=== PATIENT | female | born 1945 | race Caucasian/White ===

== ENCOUNTER 2018-05-13 09:13 | Observation (INO) | payer OTHER, BC ==
--- NOTE | 2018-05-13 09:38 | PDOC ---
History of Present Illness - General History Source: Patient, Old Records Exam Limitations: No Limitations - History of Present Illness Initial Comments: Patient is a 73 year old female with a significant past medical history of hypertension, Endometrial CA, and high cholesterol, who presents to the ED with complaints of blurred vision that began x6 days ago. Patient reports experiencing initial right sided sinus headache that she states began x2 weeks ago while at home. She reports going to urgent care for symptoms x4 days ago on Wednesday morning, states she received blood work and ESR and CRP with the results being negative. Patient reports sending the lab work to her PCP yesterday afternoon, who then advised she come into the ED for further evaluation due to the vision changes. She reports not experiencing any pain while currently in the ED, stating the pain subsided Wednesday evening. Patient states experiencing slight dizziness and unsteady gait secondary to doubled vision. Denies chest pain, Sob. Denies nausea, vomiting. Denies fevers, chills. Denies contact with sick individuals, out of state travelling. Denies head trauma, loss of consciousness. Denies dysuria, hematuria, constipation, diarrhea. Denies any other symptoms. Allergies: Bactrim Social history: Former smoker (Last 20+ years ago). No alcohol. No illicit drugs. Surgical history: None PMD: Dr. Rolanda Skinner <Dionte Gao - Last Filed: 05/13/18 10:49> <Guerline Jaimes - Last Filed: 05/13/18 13:50> - General Chief Complaint: Difficulty with Vision Stated Complaint: DOUBLE VISION (PCP SENT) Time Seen by Provider: 05/13/18 09:37 Past History <Dionte Gao - Last Filed: 05/13/18 10:49> - Past Medical History Cancer: Yes (ENDOMETRIAL) Cardiac Disorders: Yes (ANGINA) COPD: No Diabetes: Yes (NIDD) HTN: Yes Hypercholesterolemia: Yes - Immunization History Immunization Up to Date: Yes - Suicide/Smoking/Psychosocial Hx Smoking Status: Yes Smoking History: Former smoker Have you smoked in the past 12 months: No Number of Cigarettes Smoked Daily: 0 If you are a former smoker, when did you quit?: 20+ years ago Information on smoking cessation initiated: No Hx Alcohol Use: No Drug/Substance Use Hx: No <Guerline Jaimes - Last Filed: 05/13/18 13:50> - Past Medical History Allergies/Adverse Reactions: Allergies Allergy/AdvReac Type Severity Reaction Status Date / Time sulfamethoxazole Allergy HIVES/WHEEZ Verified 09/02/12 09:58 [From Bactrim] ING trimethoprim [From Bactrim] Allergy HIVES/WHEEZ Verified 09/02/12 09:58 ING Home Medications: Ambulatory Orders Aspirin/Acetaminophen/Caffeine [Excedrin Extra Strength Caplet] 1 each PO PRN Fesoterodine Fumarate [Toviaz] 8 mg PO BID 05/13/18 Glucosamine/MSM/Chondroitin A [Glucosamine Chondroit MSM Tab] 1 each PO DAILY Hydrochlorothiazide [Hctz -] 12.5 mg PO DAILY 05/13/18 Metformin HCl [Metformin HCl ER] 1,000 mg PO BID 05/13/18 Pantoprazole Sodium 40 mg PO DAILY 05/13/18 Pantoprazole Sodium 40 mg PO DAILY 05/13/18 Rosuvastatin [Crestor -] 5 mg PO QID 05/13/18 Verapamil HCl [Verapamil ER Pm] 300 mg PO DAILY 05/13/18 Review of Systems - Review of Systems Able to Perform ROS?: Yes Comments:: GENERAL/CONSTITUTIONAL: No fever or chills. No weakness. HEAD, EYES, EARS, NOSE AND THROAT: +Head pain. +doubled vision. No ear pain or discharge. No sore throat. CARDIOVASCULAR: No chest pain or shortness of breath. RESPIRATORY: No cough, wheezing, or hemoptysis. GASTROINTESTINAL: No nausea, vomiting, diarrhea or constipation. GENITOURINARY: No dysuria, frequency, or change in urination. MUSCULOSKELETAL: No joint or muscle swelling or pain. No neck or back pain. SKIN: No rash NEUROLOGIC: No headache, vertigo, loss of consciousness, or change in strength/ sensation. ENDOCRINE: No increased thirst. No abnormal weight change. HEMATOLOGIC/LYMPHATIC: No anemia, easy bleeding, or history of blood clots. ALLERGIC/IMMUNOLOGIC: No hives or skin allergy. All Other Systems: Reviewed and Negative <Dionte Gao - Last Filed: 05/13/18 10:49> *Physical Exam - Vital Signs Last Vital Signs Temp Pulse Resp BP Pulse Ox 98.7 F 95 H 16 136/80 96 05/13/18 09:14 05/13/18 09:14 05/13/18 09:14 05/13/18 09:14 05/13/18 09:59 - Physical Exam Comments: GENERAL: Awake, alert, and fully oriented, in no acute distress HEAD: No signs of trauma EYES: +Ocular reflexes intact, slight sluggish in the right eye. PERRLA, EOMI, sclera anicteric, conjunctiva clear ENT: Auricles normal inspection, hearing grossly normal, nares patent, oropharynx clear without exudates. Moist mucosa NECK: Normal ROM, supple, no lymphadenopathy, JVD, or masses LUNGS: Breath sounds equal, clear to auscultation bilaterally. No wheezes, and no crackles HEART: Regular rate and rhythm, normal S1 and S2, no murmurs, rubs or gallops ABDOMEN: Soft, nontender, normoactive bowel sounds. No guarding, no rebound. No masses EXTREMITIES: Normal range of motion, no edema. No clubbing or cyanosis. No cords, erythema, or tenderness NEUROLOGICAL: Cranial nerves II through XII grossly intact. Normal speech, normal gait SKIN: Warm, Dry, normal turgor, no rashes or lesions noted. <Dionte Gao - Last Filed: 05/13/18 10:49> - Vital Signs Last Vital Signs Temp Pulse Resp BP Pulse Ox 98.7 F 95 H 16 136/80 96 05/13/18 09:14 05/13/18 09:14 05/13/18 09:14 05/13/18 09:14 05/13/18 09:14 <Guerline Jaimes - Last Filed: 05/13/18 13:50> ED Treatment Course - LABORATORY CBC & Chemistry Diagram: 05/13/18 10:55 05/13/18 10:55 <Guerline Jaimes - Last Filed: 05/13/18 13:50> Medical Decision Making - Medical Decision Making 05/13/18 10:56 Pt presents to the ED complaining of a 6 day history of binoncular diplopia. Denies other symptoms except for mild lightheadness. Neurologically intact on exam except for somewhat sluggish extraoccular movements in the R eye. Concern for space occupying intracranial lesion. Will check CT head, likely admit for MRI if CT head is negative. <Guerline Jaimes - Last Filed: 05/13/18 13:50> *DC/Admit/Observation/Transfer - Attestations Scribe Attestion: 05/13/18 10:50 Documentation prepared by Dionte Gao, acting as biomedical engineer for Guerline Jaimes MD. <Dionte Gao - Last Filed: 05/13/18 10:49> - Discharge Dispostion Decision to Admit order: Yes <Guerline Jaimes - Last Filed: 05/13/18 13:50> Diagnosis at time of Disposition: Diplopia - Discharge Dispostion Condition at time of disposition: Good - Referrals Referrals: Espinoza Skinner MD [Primary Care Provider] - - Patient Instructions - Post Discharge Activity
[2018-05-13 11:03] LABS: BASO % 0.8 % (0-2.0); EOS % 1.1 % (0-4.5); HEMOGLOBIN 13.7 GM/dL (10.7-15.3); LYMPH % 28.5 % (8-40); MCH 31.3 pg (25.7-33.7); MCHC 34.3 g/dl (32.0-36.0); MEAN CELL VOLUME 91.1 fl (80-96); MEAN PLT VOLUME 7.6 fl (7.5-11.1); MONO % 3.6 % (3.8-10.2); PLATELET COUNT 337 K/MM3 (134-434); RBC 4.39 M/mm3 (3.60-5.2); RDW 13.6 % (11.6-15.6); WHITE BLOOD COUNT 8.3 K/mm3 (4.0-10.0)
[2018-05-13 11:24] LABS: ANION GAP 9 (8-16); BLOOD UREA NITROGEN 17 mg/dL (7-18); CALCIUM 9.7 mg/dL (8.5-10.1); CHLORIDE 102 mmol/L (98-107); CO2 30 mmol/L (21-32); GLUCOSE,RANDOM 147 mg/dL (74-106); POTASSIUM 4.7 mmol/L (3.5-5.1); SODIUM 141 mmol/L (136-145)
[2018-05-13 11:28] LABS: ALK PHOS 101 U/L (45-117); BILIRUBIN,TOTAL 0.3 mg/dL (0.2-1.0); CREATININE 0.7 mg/dL (0.55-1.02); SGOT/AST 13 U/L (15-37); SGPT/ALT 26 U/L (12-78); TOT PROT 7.6 g/dl (6.4-8.2)
[2018-05-13 12:15] LABS: ERYTHROCYTE SEDIMENTATION RATE 17 mm/hr (0-30)
--- NOTE | 2018-05-13 13:48 | HP ---
CHIEF COMPLAINT: Double vision PCP: Dr. Espinoza Skinner [facility] Lech[facility] [phone] ; FAX: [phone] HISTORY OF PRESENT ILLNESS: Patient is a 73 year old female with a PMH significant for HTN, HLD, NIDDM, and endometrial cancer. She presents to the ED with complaints of headache and blurred vision. About two weeks ago patient developed a headache just above the right eye. She felt sinus pressure and soreness when she pressed on her eyebrow. The headache lasted for about a week and went away. There was no nasal discharge or upper respiratory symptoms. The headache has not recurred. About 4 days ago she developed "double vision." She describes the vision change as items up close appear to be vibrating. She has had some unsteadiness walking due to the vision difficulty. Patient has been travelling back and forth to [facility] since the spring and spends several weeks at a time there. Family members in the area have contracted Lyme disease recently. Patient has not noticed any rashes or tick bites and she is diligent about checking her skin. Patient has no other complaints. She has no pain. Denies fever, sweats, chills. 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 years Alcohol: no Drugs: no Family History: Allergies sulfamethoxazole [From Bactrim] Allergy (Verified 09/02/12 09:58) HIVES/WHEEZING trimethoprim [From Bactrim] Allergy (Verified 09/02/12 09:58) HIVES/WHEEZING HOME MEDICATIONS: Home Medications Medication Instructions Recorded Aspirin/Acetaminophen/Caffeine 1 each PO PRN 05/13/18 [Excedrin Extra Strength Caplet] Fesoterodine Fumarate [Toviaz] 8 mg PO BID 05/13/18 Glucosamine/MSM/Chondroitin A 1 each PO DAILY 05/13/18 [Glucosamine Chondroit MSM Tab] Hydrochlorothiazide [Hctz -] 12.5 mg PO DAILY 05/13/18 Metformin HCl [Metformin HCl ER] 1,000 mg PO BID 05/13/18 Pantoprazole Sodium 40 mg PO DAILY 05/13/18 Pantoprazole Sodium 40 mg PO DAILY 05/13/18 Rosuvastatin [Crestor -] 5 mg PO QID 05/13/18 Verapamil HCl [Verapamil ER Pm] 300 mg PO DAILY 05/13/18 REVIEW OF SYSTEMS CONSTITUTIONAL: Absent: fever, chills, diaphoresis, generalized weakness, malaise, loss of appetite, weight change HEENT: Absent: rhinorrhea, nasal congestion, throat pain, throat swelling, difficulty swallowing, mouth swelling, ear pain, eye pain, visual changes CARDIOVASCULAR: Absent: chest pain, syncope, palpitations, irregular heart rate, lightheadedness , peripheral edema RESPIRATORY: Absent: cough, shortness of breath, dyspnea with exertion, orthopnea, wheezing, stridor, hemoptysis GASTROINTESTINAL: Absent: abdominal pain, abdominal distension, nausea, vomiting, diarrhea, constipation, melena, hematochezia GENITOURINARY: Absent: dysuria, frequency, urgency, hesitancy, hematuria, flank pain, genital pain MUSCULOSKELETAL: Absent: myalgia, arthralgia, joint swelling, back pain, neck pain SKIN: Absent: rash, itching, pallor HEMATOLOGIC/IMMUNOLOGIC: Absent: easy bleeding, easy bruising, lymphadenopathy, frequent infections ENDOCRINE: Absent: unexplained weight gain, unexplained weight loss, heat intolerance, cold intolerance NEUROLOGIC: +double vision, headache Absent: headache, focal weakness or paresthesias, dizziness, unsteady gait, seizure, mental status changes, bladder or bowel incontinence PSYCHIATRIC: Absent: anxiety, depression, suicidal or homicidal ideation, hallucinations. PHYSICAL EXAMINATION Vital Signs - 24 hr 05/13/18 05/13/18 05/13/18 09:14 09:59 13:06 Temperature 98.7 F 99.0 F Pulse Rate 95 H Pulse Rate [ 97 H Left Radial] Respiratory 16 16 Rate Blood Pressure 136/80 Blood Pressure 135/82 [Right Arm] O2 Sat by Pulse 96 96 96 Oximetry (%) GENERAL: Awake, alert, and fully oriented, in no acute distress. HEAD: Normal with no signs of trauma. EYES: PERRL but not to accommodation. Right eye did not deviate. Left eye deviated medially and downward. EARS, NOSE, THROAT: Ears normal, nares patent, oropharynx clear without exudates. Moist mucous membranes. NECK: Normal range of motion, supple without lymphadenopathy, JVD, or masses. LUNGS: Breath sounds equal, clear to auscultation bilaterally. No wheezes, and no crackles. No accessory muscle use. HEART: Regular rate and rhythm, normal S1 and S2 without murmur, rub or gallop. ABDOMEN: Soft, nontender, not distended, normoactive bowel sounds, no guarding, no rebound, no masses. No hepatomegaly or splenomegaly. MUSCULOSKELETAL: Normal range of motion at all joints. No bony deformities or tenderness. No CVA tenderness. UPPER EXTREMITIES: 2+ pulses, warm, well-perfused. No cyanosis. No clubbing. No peripheral edema. LOWER EXTREMITIES: 2+ pulses, warm, well-perfused. No calf tenderness. No peripheral edema. NEUROLOGICAL: Cranial nerves II-XII intact. Normal speech. Normal gait. PSYCHIATRIC: Cooperative. Good eye contact. Appropriate mood and affect. SKIN: Warm, dry, normal turgor, no rashes or lesions noted, normal capillary refill. Laboratory Results - last 24 hr 05/13/18 05/13/18 10:55 10:55 WBC 8.3 RBC 4.39 Hgb 13.7 Hct 40.0 MCV 91.1 MCH 31.3 MCHC 34.3 RDW 13.6 Plt Count 337 MPV 7.6 Absolute Neuts (auto) 5.5 Neutrophils % 66.0 Lymphocytes % 28.5 Monocytes % 3.6 L Eosinophils % 1.1 Basophils % 0.8 Nucleated RBC % 0 ESR 17 Sodium 141 Potassium 4.7 Chloride 102 Carbon Dioxide 30 Anion Gap 9 BUN 17 Creatinine 0.7 Creat Clearance w eGFR > 60 Random Glucose 147 H Calcium 9.7 Total Bilirubin 0.3 AST 13 L ALT 26 Alkaline Phosphatase 101 C-Reactive Protein 0.9 H Total Protein 7.6 Albumin 4.0 ASSESSMENT/PLAN: Patient is a 73 year old female with a PMH significant for HTN, HLD, NIDDM, and endometrial cancer. Placed on observation for diplopia. Diplopia --on exam left eye deviates on accommodation --CT head negative for acute process --MRI brain w/o contrast ordered --peripheral smear, Lymes w/ Western Blot, ehrlichiosis, babesisos --ID consult requested --neuro consult requested Hypertension --BP stable --continue quinapril, HCTZ Hyperlipidemia --continue statin NIDDM --Novolog sliding scale coverage Endometrial cancer, remote --s/p REJI-SBO --stable FEN Fluids: PO intake adequate Electrolytes: replete as indicated Nutrition: low sodium DVT prophylaxis; subq heparin tomorrow if still here Dispo: continues to require observation. Full code. Visit type - Emergency Visit Emergency Visit: Yes ED Registration Date: 05/13/18 Care time: The patient presented to the Emergency Department on the above date and was hospitalized for further evaluation of their emergent condition. - New Patient This patient is new to me today: Yes Date on this admission: 05/14/18 - Critical Care Critical Care patient: No Hospitalist Screening - Colonoscopy Questionnaire Colonoscopy Questionnaire: Colonoscopy Questionnaire - Patient: 50 - 75 years old and never had a screening colonoscopy: Unknown History of colon or rectal polyps, or CA: No History of IBD, Crohn's disease or UC: No History of abdominal radiation therapy as a child: No - Relative: 1 with colon or rectal CA, or polyps at age 60 or younger: Unknown Colon or rectal CA diagnosed at age 45 or younger: Unknown Multiple relatives with colon or rectal CA: Unknown - Outcome: Screening Result: Negative Screen
[2018-05-13 16:07] VITALS: BMI 33.0
[2018-05-13] MEDS ORDERED: diazePAM 5 MG TABLET PO ONE (19:45)
[2018-05-13] MEDS: ROSUVASTATIN CA 5 MG TABLET (FP) PO SCH (21:51)
[2018-05-13] MEDS: VERAPAMIL HCL PO SCH (21:51)
[2018-05-13] MEDS: HEPARIN NA (PORCINE) 5,000 UNITS/ML 1ML VIAL SQ SCH (21:54)
[2018-05-13 22:04] LABS: BASO % 0.7 % (0-2.0); EOS % 1.1 % (0-4.5); HEMATOCRIT 39.1 % (32.4-45.2); HEMOGLOBIN 13.2 GM/dL (10.7-15.3); MCHC 33.8 g/dl (32.0-36.0); MEAN CELL VOLUME 91.5 fl (80-96); MEAN PLT VOLUME 8.1 fl (7.5-11.1); MONO % 3.4 % (3.8-10.2); NEUT % 62.8 % (42.8-82.8); PLATELET COUNT 329 K/MM3 (134-434); RBC 4.27 M/mm3 (3.60-5.2); RDW 13.5 % (11.6-15.6); WHITE BLOOD COUNT 9.6 K/mm3 (4.0-10.0)
[2018-05-14] MEDS: HEPARIN NA (PORCINE) 5,000 UNITS/ML 1ML VIAL SQ SCH ×3 (06:19→21:54)
[2018-05-14] MEDS ORDERED: VERAPAMIL HCL PO SCH (10:00)
[2018-05-14] MEDS ORDERED: HYDROCHLOROTHIAZIDE 12.5 MG CAPSULE (FP) PO SCH ×2 (10:00→17:30)
[2018-05-14] MEDS ORDERED: VERAPAMIL HCL 300 MG PO SCH (10:00)
[2018-05-14] MEDS ORDERED: ROSUVASTATIN CA 5 MG TABLET (FP) PO SCH (10:00)
--- NOTE | 2018-05-14 10:10 | PN ---
Physical Exam: SUBJECTIVE: Patient seen and examined at bedside. Back from MRI, tolerated well. OBJECTIVE: Vital Signs Period Temp Pulse Resp BP Sys/Cedñeo Pulse Ox Last 24 Hr 97.3 F-99.0 F 71-109 16-20 124-147/64-90 96-97 GENERAL: Awake, alert, and fully oriented, in no acute distress. EYES: PERRL but not to accommodation. Right eye did not deviate. Left eye deviated medially and downward. LUNGS: Breath sounds equal, clear to auscultation bilaterally. No wheezes, and no crackles. No accessory muscle use. HEART: Regular rate and rhythm, normal S1 and S2 ABDOMEN: Soft, nontender, not distended MUSCULOSKELETAL: Normal range of motion at all joints. No bony deformities or tenderness. No CVA tenderness. UPPER EXTREMITIES: 2+ pulses, warm, well-perfused. No cyanosis. No clubbing. No peripheral edema. LOWER EXTREMITIES: 2+ pulses, warm, well-perfused. No calf tenderness. No peripheral edema. Laboratory Results - last 24 hr 05/13/18 05/13/18 05/13/18 10:55 10:55 21:15 WBC 8.3 9.6 RBC 4.39 4.27 Hgb 13.7 13.2 Hct 40.0 39.1 MCV 91.1 91.5 MCH 31.3 31.0 MCHC 34.3 33.8 RDW 13.6 13.5 Plt Count 337 329 MPV 7.6 8.1 Absolute Neuts (auto) 5.5 6.0 Neutrophils % 66.0 62.8 Lymphocytes % 28.5 32.0 Monocytes % 3.6 L 3.4 L Eosinophils % 1.1 1.1 Basophils % 0.8 0.7 Nucleated RBC % 0 0 ESR 17 Sodium 141 Potassium 4.7 Chloride 102 Carbon Dioxide 30 Anion Gap 9 BUN 17 Creatinine 0.7 Creat Clearance w eGFR > 60 POC Glucometer Random Glucose 147 H Calcium 9.7 Total Bilirubin 0.3 AST 13 L ALT 26 Alkaline Phosphatase 101 C-Reactive Protein 0.9 H Total Protein 7.6 Albumin 4.0 05/13/18 05/14/18 23:40 06:03 WBC RBC Hgb Hct MCV MCH MCHC RDW Plt Count MPV Absolute Neuts (auto) Neutrophils % Lymphocytes % Monocytes % Eosinophils % Basophils % Nucleated RBC % ESR Sodium Potassium Chloride Carbon Dioxide Anion Gap BUN Creatinine Creat Clearance w eGFR POC Glucometer 148 135 Random Glucose Calcium Total Bilirubin AST ALT Alkaline Phosphatase C-Reactive Protein Total Protein Albumin Active Medications Generic Name Dose Route Start Last Admin Trade Name Evelia PRN Reason Stop Dose Admin Heparin Sodium (Porcine) 5,000 unit 05/13/18 22:00 05/14/18 06:19 Heparin - SQ 5,000 unit TID MEDINA Administration Hydrochlorothiazide 12.5 mg 05/14/18 10:00 Hctz - PO DAILY MEDINA Rosuvastatin Calcium 5 mg 05/13/18 22:00 05/13/18 21:51 Crestor - PO 5 mg HS MEDINA Administration Verapamil HCl 120 mg/ 300 mg 05/13/18 22:00 05/13/18 21:51 Verapamil HCl 180 mg PO 300 mg HS MEDINA Administration ASSESSMENT/PLAN: Patient is a 73 year old female with a PMH significant for HTN, HLD, NIDDM, and endometrial cancer. Placed on observation for diplopia. Diplopia --on exam left eye deviates on accommodation --CT head negative for acute process --MRI brain done pending dictation --peripheral smear, Lymes w/ Western Blot, ehrlichiosis, babesisos pending --ID and neuro following Hypertension --BP stable --continue quinapril, HCTZ Hyperlipidemia --continue statin NIDDM --Novolog sliding scale coverage Endometrial cancer, remote --s/p REJI-SBO --stable FEN Fluids: PO intake adequate Electrolytes: replete as indicated Nutrition: low sodium DVT prophylaxis; subq heparin; oob, ambulation Dispo: continues to require observation. Full code. Visit type - Emergency Visit Emergency Visit: Yes ED Registration Date: 05/13/18 Care time: The patient presented to the Emergency Department on the above date and was hospitalized for further evaluation of their emergent condition. - New Patient This patient is new to me today: No - Critical Care Critical Care patient: No
[2018-05-14] MEDS ORDERED: diazePAM 5 MG TABLET PO ONE (11:45)
--- NOTE | 2018-05-14 11:54 | CONSULT ---
Consult - text type - Consultation Consultation Note: Neurology CHIEF COMPLAINT: Double vision HISTORY OF PRESENT ILLNESS: 73 year old female with a PMH significant for HTN, HLD, NIDDM, and endometrial cancer. She presented to the ED with complaints of blurred vision that began x 6 days ago. Patient reported experiencing initial right-sided sinus headache that she states began x2 weeks ago while at home. She reported going to urgent care for symptoms x 4 days ago on Wednesday morning, stateed she received blood work and ESR and CRP with the results being negative, not consistent with giant cell arteritis. Patient reports sending the lab work to her PCP, who then advised she come into the ED for further evaluation due to the vision changes. She reported not experiencing any pain. Denies chest pain, Sob. Denies nausea, vomiting. Denies fevers, chills. Denies contact with sick individuals, out of state travelling. Denies head trauma, loss of consciousness. Denies dysuria, hematuria, constipation, diarrhea. Denies any other symptoms. CT head completed without acute changes. MRI ordered but patient with nerve stimulator. Discussed with nurse and radiology would have to contact [employer] to assure it has been turned off for safe completion of MRI. Defer to radiology staff on this. Patient states she was able to call [employer] rep and have it turned off but this is not something I can verify. Recent Travel: No PAST MEDICAL HISTORY: Hypertension Hyperlipidemia NIDDM Endometrial cancer PAST SURGICAL HISTORY: None reported Social History: retired nurse Smoking: quit x 20 years Alcohol: no Drugs: no Family History: Allergies sulfamethoxazole [From Bactrim] Allergy (Verified 09/02/12 09:58) HIVES/WHEEZING trimethoprim [From Bactrim] Allergy (Verified 09/02/12 09:58) HIVES/WHEEZING HOME MEDICATIONS: Home Medications Medication Instructions Recorded Aspirin/Acetaminophen/Caffeine 1 each PO PRN 05/13/18 [Excedrin Extra Strength Caplet] Fesoterodine Fumarate [Toviaz] 8 mg PO BID 05/13/18 Glucosamine/MSM/Chondroitin A 1 each PO DAILY 05/13/18 [Glucosamine Chondroit MSM Tab] Hydrochlorothiazide [Hctz -] 12.5 mg PO DAILY 05/13/18 Metformin HCl [Metformin HCl ER] 1,000 mg PO BID 05/13/18 Pantoprazole Sodium 40 mg PO DAILY 05/13/18 Pantoprazole Sodium 40 mg PO DAILY 05/13/18 Rosuvastatin [Crestor -] 5 mg PO QID 05/13/18 Verapamil HCl [Verapamil ER Pm] 300 mg PO DAILY 05/13/18 REVIEW OF SYSTEMS CONSTITUTIONAL: Absent: fever, chills, diaphoresis, generalized weakness, malaise, loss of appetite, weight change HEENT: Absent: rhinorrhea, nasal congestion, throat pain, throat swelling, difficulty swallowing, mouth swelling, ear pain, eye pain, visual changes CARDIOVASCULAR: Absent: chest pain, syncope, palpitations, irregular heart rate, lightheadedness , peripheral edema RESPIRATORY: Absent: cough, shortness of breath, dyspnea with exertion, orthopnea, wheezing, stridor, hemoptysis GASTROINTESTINAL: Absent: abdominal pain, abdominal distension, nausea, vomiting, diarrhea, constipation, melena, hematochezia GENITOURINARY: Absent: dysuria, frequency, urgency, hesitancy, hematuria, flank pain, genital pain MUSCULOSKELETAL: Absent: myalgia, arthralgia, joint swelling, back pain, neck pain SKIN: Absent: rash, itching, pallor HEMATOLOGIC/IMMUNOLOGIC: Absent: easy bleeding, easy bruising, lymphadenopathy, frequent infections ENDOCRINE: Absent: unexplained weight gain, unexplained weight loss, heat intolerance, cold intolerance NEUROLOGIC: +double vision, headache Absent: headache, focal weakness or paresthesias, dizziness, unsteady gait, seizure, mental status changes, bladder or bowel incontinence PSYCHIATRIC: Absent: anxiety, depression, suicidal or homicidal ideation, hallucinations. PHYSICAL EXAMINATION Vital Signs Period Temp Pulse Resp BP Sys/Cedeño Pulse Ox Last 24 Hr 97.3 F-99.0 F 71-109 16-20 124-147/64-90 96-97 GENERAL: Awake, alert, and fully oriented, in no acute distress. HEAD: Normal with no signs of trauma. EYES: PERRL but not to accommodation. Right eye did not deviate. Left eye deviated medially and downward. EARS, NOSE, THROAT: Ears normal, nares patent, oropharynx clear without exudates. Moist mucous membranes. NECK: Normal range of motion, supple without lymphadenopathy, JVD, or masses. LUNGS: Breath sounds equal, clear to auscultation bilaterally. No wheezes, and no crackles. No accessory muscle use. HEART: Regular rate and rhythm, normal S1 and S2 without murmur, rub or gallop. ABDOMEN: Soft, nontender, not distended, normoactive bowel sounds, no guarding, no rebound, no masses. No hepatomegaly or splenomegaly. MUSCULOSKELETAL: Normal range of motion at all joints. No bony deformities or tenderness. No CVA tenderness. UPPER EXTREMITIES: 2+ pulses, warm, well-perfused. No cyanosis. No clubbing. No peripheral edema. LOWER EXTREMITIES: 2+ pulses, warm, well-perfused. No calf tenderness. No peripheral edema. NEUROLOGICAL: Cranial nerves intact, no facial droop, no slurred speech, strength grossly intact, sensory normal PSYCHIATRIC: Cooperative. Good eye contact. Appropriate mood and affect. SKIN: Warm, dry, normal turgor, no rashes or lesions noted, normal capillary refill. Laboratory Results - last 24 hr 05/13/18 05/13/18 10:55 10:55 WBC 8.3 RBC 4.39 Hgb 13.7 Hct 40.0 MCV 91.1 MCH 31.3 MCHC 34.3 RDW 13.6 Plt Count 337 MPV 7.6 Absolute Neuts (auto) 5.5 Neutrophils % 66.0 Lymphocytes % 28.5 Monocytes % 3.6 L Eosinophils % 1.1 Basophils % 0.8 Nucleated RBC % 0 ESR 17 Sodium 141 Potassium 4.7 Chloride 102 Carbon Dioxide 30 Anion Gap 9 BUN 17 Creatinine 0.7 Creat Clearance w eGFR > 60 Random Glucose 147 H Calcium 9.7 Total Bilirubin 0.3 AST 13 L ALT 26 Alkaline Phosphatase 101 C-Reactive Protein 0.9 H Total Protein 7.[address] head reviewed ASSESSMENT/PLAN: 73 year old female with a PMH significant for HTN, HLD, NIDDM, and endometrial cancer. She presented to the ED with complaints of blurred vision that began x 6 days ago. Patient reported experiencing initial right-sided sinus headache that she states began x2 weeks ago while at home. She reported going to urgent care for symptoms x 4 days ago on Wednesday morning, stateed she received blood work and ESR and CRP with the results being negative, not consistent with giant cell arteritis. Patient reports sending the lab work to her PCP, who then advised she come into the ED for further evaluation due to the vision changes. She reported not experiencing any pain. Denies chest pain, Sob. Denies nausea, vomiting. Denies fevers, chills. Denies contact with sick individuals, out of state travelling. Denies head trauma, loss of consciousness. Denies dysuria, hematuria, constipation, diarrhea. Denies any other symptoms. CT head completed without acute changes. MRI ordered but patient with nerve stimulator. Discussed with nurse and radiology would have to contact [employer] to assure it has been turned off for safe completion of MRI. Defer to radiology staff on this. Patient states she was able to call [employer] rep and have it turned off but this is not something I can verify. If MRI brain not feasible, can try repeat CT head. Consider optho consult. Monitor blood pressure, maintain normotensive range. Monitor lipid, continue statin.
[2018-05-14] MEDS ORDERED: PATIENT'S OWN MEDICATION (NON-FORMULARY) (Quinapril/Hydrochlorothiazide [Accuretic 20-12.5 PO SCH (17:30)
[2018-05-14] MEDS ORDERED: QUINAPRIL HCL 20 MG TABLET (FP) PO SCH ×2 (17:30)
[2018-05-14] MEDS ORDERED: QUINAPRIL HCL 20 MG TABLET (FP) PO ONE (18:00)
[2018-05-14] MEDS: VERAPAMIL HCL PO SCH (21:54)
[2018-05-14] MEDS: ROSUVASTATIN CA 5 MG TABLET (FP) PO SCH (21:55)
[2018-05-14] MEDS: INSULIN SLIDING SCALE (NOVOLOG) 1 VIAL SQ SCH (21:55)
[2018-05-14] MEDS ORDERED: AMITRIPTYLINE HCL 10 MG TABLET (FP) PO SCH (22:00)
[2018-05-15] MEDS: INSULIN SLIDING SCALE (NOVOLOG) 1 VIAL SQ SCH ×3 (06:50→17:13)
[2018-05-15] MEDS: HEPARIN NA (PORCINE) 5,000 UNITS/ML 1ML VIAL SQ SCH ×2 (06:50→13:53)
[2018-05-15] MEDS ORDERED: PT OWN MED DRAWER 7, Y5N ONE (09:26)
[2018-05-15] MEDS ORDERED: QUINAPRIL HCL 20 MG TABLET (FP) PO SCH (10:00)
[2018-05-15] MEDS ORDERED: PANTOPRAZOLE 40 MG TABLET (FP) PO SCH (10:00)
[2018-05-15] MEDS ORDERED: HYDROCHLOROTHIAZIDE 12.5 MG CAPSULE (FP) PO SCH (10:00)
--- NOTE | 2018-05-15 12:42 | PN ---
Progress Note (short form) - Note Progress Note: Neurology CHIEF COMPLAINT: Double vision HISTORY OF PRESENT ILLNESS: 73 year old female with a PMH significant for HTN, HLD, NIDDM, and endometrial cancer. She presented to the ED with complaints of blurred vision that began x 6 days ago. Patient reported experiencing initial right-sided sinus headache that she states began x2 weeks ago while at home. She reported going to urgent care for symptoms x 4 days ago on Wednesday morning, stateed she received blood work and ESR and CRP with the results being negative, not consistent with giant cell arteritis. Patient reports sending the lab work to her PCP, who then advised she come into the ED for further evaluation due to the vision changes. She reported not experiencing any pain. MRI completed. mri completed and reviewed, no infarct nited Suggested Optho eval, if not completed inpatient can be outpatient Active Medications Amitriptyline HCl (Elavil -) 10 mg PO HS [facility] Last Admin: 05/14/18 21:54 Dose: 10 mg Heparin Sodium (Porcine) (Heparin -) 5,000 unit SQ TID [facility] Last Admin: 05/15/18 06:50 Dose: 5,000 unit Hydrochlorothiazide (Hctz -) 12.5 mg PO DAILY [facility] Last Admin: 05/15/18 09:40 Dose: 12.5 mg Insulin Aspart (Novolog Vial Sliding Scale -) 1 vial SQ ACHS [facility]; Protocol Last Admin: 05/15/18 12:08 Dose: Not Given Pantoprazole Sodium (Protonix -) 40 mg PO DAILY [facility] Last Admin: 05/15/18 09:41 Dose: 40 mg Quinapril HCl (Accupril -) 20 mg PO DAILY [facility] Last Admin: 05/15/18 09:40 Dose: 20 mg Rosuvastatin Calcium (Crestor -) 5 mg PO HS [facility] Last Admin: 05/14/18 21:55 Dose: 5 mg Verapamil HCl 120 mg/ (Verapamil HCl 180 mg) 300 mg PO HS [facility] Last Admin: 05/14/18 21:54 Dose: 300 mg PHYSICAL EXAMINATION Vital Signs Temperature 98.8 F 05/15/18 06:43 Pulse Rate 80 05/15/18 09:30 Respiratory Rate 18 05/15/18 09:30 Blood Pressure 130/76 05/15/18 09:30 O2 Sat by Pulse Oximetry (%) 97 05/15/18 09:00 GENERAL: Awake, alert, and fully oriented, in no acute distress. HEAD: Normal with no signs of trauma. EYES: PERRL but not to accommodation. Right eye did not deviate. Left eye deviated medially and downward. EARS, NOSE, THROAT: Ears normal, nares patent, oropharynx clear without exudates. Moist mucous membranes. NECK: Normal range of motion, supple without lymphadenopathy, JVD, or masses. LUNGS: Breath sounds equal, clear to auscultation bilaterally. No wheezes, and no crackles. No accessory muscle use. HEART: Regular rate and rhythm, normal S1 and S2 without murmur, rub or gallop. ABDOMEN: Soft, nontender, not distended, normoactive bowel sounds, no guarding, no rebound, no masses. No hepatomegaly or splenomegaly. MUSCULOSKELETAL: Normal range of motion at all joints. No bony deformities or tenderness. No CVA tenderness. UPPER EXTREMITIES: 2+ pulses, warm, well-perfused. No cyanosis. No clubbing. No peripheral edema. LOWER EXTREMITIES: 2+ pulses, warm, well-perfused. No calf tenderness. No peripheral edema. NEUROLOGICAL: Cranial nerves intact, no facial droop, no slurred speech, strength grossly intact, sensory normal PSYCHIATRIC: Cooperative. Good eye contact. Appropriate mood and affect. SKIN: Warm, dry, normal turgor, no rashes or lesions noted, normal capillary refill. CBCD WBC 9.6 K/mm3 (4.0-10.0) 05/13/18 21:15 RBC 4.27 M/mm3 (3.60-5.2) 05/13/18 21:15 Hgb 13.2 GM/dL (10.7-15.3) 05/13/18 21:15 Hct 39.1 % (32.4-45.2) 05/13/18 21:15 MCV 91.5 fl (80-96) 05/13/18 21:15 MCHC 33.8 g/dl (32.0-36.0) 05/13/18 21:15 RDW 13.5 % (11.6-15.6) 05/13/18 21:15 Plt Count 329 K/MM3 (134-434) 05/13/18 21:15 MPV 8.1 fl (7.5-11.1) 05/13/18 21:15 CMP Sodium 141 mmol/L (136-145) 05/13/18 10:55 Potassium 4.7 mmol/L (3.5-5.1) 05/13/18 10:55 Chloride 102 mmol/L (98-107) 05/13/18 10:55 Carbon Dioxide 30 mmol/L (21-32) 05/13/18 10:55 Anion Gap 9 (8-16) 05/13/18 10:55 BUN 17 mg/dL (7-18) 05/13/18 10:55 Creatinine 0.7 mg/dL (0.55-1.02) 05/13/18 10:55 Creat Clearance w eGFR > 60 (>60) 05/13/18 10:55 Calcium 9.7 mg/dL (8.5-10.1) 05/13/18 10:55 Total Bilirubin 0.3 mg/dL (0.2-1.0) 05/13/18 10:55 AST 13 U/L (15-37) L 05/13/18 10:55 ALT 26 U/L (12-78) 05/13/18 10:55 Alkaline Phosphatase 101 U/L (45-117) 05/13/18 10:55 Total Protein 7.6 g/dl (6.4-8.2) 05/13/18 10:55 Albumin 4.0 g/dl (3.4-5.0) 05/13/18 10:55 CT head reviewed ASSESSMENT/PLAN: 73 year old female with a PMH significant for HTN, HLD, NIDDM, and endometrial cancer. She presented to the ED with complaints of blurred vision that began x 6 days ago. Patient reported experiencing initial right-sided sinus headache that she states began x2 weeks ago while at home. She reported going to urgent care for symptoms x 4 days ago on Wednesday morning, stateed she received blood work and ESR and CRP with the results being negative, not consistent with giant cell arteritis. Patient reports sending the lab work to her PCP, who then advised she come into the ED for further evaluation due to the vision changes. She reported not experiencing any pain. Denies chest pain, Sob. Denies nausea, vomiting. Denies fevers, chills. Denies contact with sick individuals, out of state travelling. Denies head trauma, loss of consciousness. Denies dysuria, hematuria, constipation, diarrhea. Denies any other symptoms. CT head completed without acute changes. MRI reviewed and no acute changes noted. Consider optho consult, if not inpatient can be done as outpatient. Monitor blood pressure, maintain normotensive range. Monitor lipid, continue statin.
--- NOTE | 2018-05-15 14:39 | PN ---
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
[2018-05-15 15:54] VITALS: BP 123/73; PULSE 86; TEMP 98.5
--- NOTE | 2018-05-15 18:11 | DS ---
Physical Exam: SUBJECTIVE: Patient seen and examined OBJECTIVE: Vital Signs Period Temp Pulse Resp BP Sys/Cedeño Pulse Ox Last 24 Hr 98.5 F-98.8 F 70-96 18-22 117-146/55-96 97-98 PHYSICAL EXAM GENERAL: Awake, alert, and fully oriented, in no acute distress. HEAD: Normal with no signs of trauma. EYES: PERRL but not to accommodation. Right eye did not deviate. Left eye deviated medially and downward. EARS, NOSE, THROAT: Ears normal, nares patent, oropharynx clear without exudates. Moist mucous membranes. NECK: Normal range of motion, supple without lymphadenopathy, JVD, or masses. LUNGS: Breath sounds equal, clear to auscultation bilaterally. No wheezes, and no crackles. No accessory muscle use. HEART: Regular rate and rhythm, normal S1 and S2 without murmur, rub or gallop. ABDOMEN: Soft, nontender, not distended, normoactive bowel sounds, no guarding, no rebound, no masses. No hepatomegaly or splenomegaly. MUSCULOSKELETAL: Normal range of motion at all joints. No bony deformities or tenderness. No CVA tenderness. UPPER EXTREMITIES: 2+ pulses, warm, well-perfused. No cyanosis. No clubbing. No peripheral edema. LOWER EXTREMITIES: 2+ pulses, warm, well-perfused. No calf tenderness. No peripheral edema. NEUROLOGICAL: Cranial nerves II-XII intact. Normal speech. Normal gait. PSYCHIATRIC: Cooperative. Good eye contact. Appropriate mood and affect. SKIN: Warm, dry, normal turgor, no rashes or lesions noted, normal capillary refill. LABS CBCD WBC 9.6 K/mm3 (4.0-10.0) 05/13/18 21:15 RBC 4.27 M/mm3 (3.60-5.2) 05/13/18 21:15 Hgb 13.2 GM/dL (10.7-15.3) 05/13/18 21:15 Hct 39.1 % (32.4-45.2) 05/13/18 21:15 MCV 91.5 fl (80-96) 05/13/18 21:15 MCHC 33.8 g/dl (32.0-36.0) 05/13/18 21:15 RDW 13.5 % (11.6-15.6) 05/13/18 21:15 Plt Count 329 K/MM3 (134-434) 05/13/18 21:15 MPV 8.1 fl (7.5-11.1) 05/13/18 21:15 CMP Sodium 141 mmol/L (136-145) 05/13/18 10:55 Potassium 4.7 mmol/L (3.5-5.1) 05/13/18 10:55 Chloride 102 mmol/L (98-107) 05/13/18 10:55 Carbon Dioxide 30 mmol/L (21-32) 05/13/18 10:55 Anion Gap 9 (8-16) 05/13/18 10:55 BUN 17 mg/dL (7-18) 05/13/18 10:55 Creatinine 0.7 mg/dL (0.55-1.02) 05/13/18 10:55 Creat Clearance w eGFR > 60 (>60) 05/13/18 10:55 Calcium 9.7 mg/dL (8.5-10.1) 05/13/18 10:55 Total Bilirubin 0.3 mg/dL (0.2-1.0) 05/13/18 10:55 AST 13 U/L (15-37) L 05/13/18 10:55 ALT 26 U/L (12-78) 05/13/18 10:55 Alkaline Phosphatase 101 U/L (45-117) 05/13/18 10:55 Total Protein 7.6 g/dl (6.4-8.2) 05/13/18 10:55 Albumin 4.0 g/dl (3.4-5.0) 05/13/18 10:55 HOSPITAL COURSE: Date of Admission:05/13/18 Date of Discharge: 05/15/18 Pre hospital course Patient is a 73 year old female with a PMH significant for HTN, HLD, NIDDM, and endometrial cancer. She presents to the ED with complaints of headache and blurred vision. About two weeks ago patient developed a headache just above the right eye. She felt sinus pressure and soreness when she pressed on her eyebrow. The headache lasted for about a week and went away. There was no nasal discharge or upper respiratory symptoms. The headache has not recurred. About 4 days ago she developed "double vision." She describes the vision change as items up close appear to be vibrating. She has had some unsteadiness walking due to the vision difficulty. Patient has been travelling back and forth to [facility] since the spring and spends several weeks at a time there. Family members in the area have contracted Lyme disease recently. Patient has not noticed any rashes or tick bites and she is diligent about checking her skin. Patient has no other complaints. She has no pain. Denies fever, sweats, chills. Subsequent hospital course Diplopia --on exam left eye deviates on accommodation --CT head negative for acute process --MRI brain w/o contrast negative for acute process --previous Lymes testing negative (outside facility) repeat pending --RPR negative --needs outpatient opthalmology evaluation Hypertension --BP stable --continued quinapril, HCTZ Hyperlipidemia --continued statin NIDDM --Novolog sliding scale coverage Endometrial cancer, remote --s/p [id number] --stable Minutes to complete discharge: 35 Discharge Summary Reason For Visit: DIPLOPIA Current Active Problems Diplopia (Acute) Condition: Improved - Instructions Diet, Activity, Other Instructions: It is recommended you follow up with your primary care provider, Dr. Hurtado, within one week of your discharge. It is also recommended you follow up with an opthalmologist. You asked for a recommendation. Contact information for Dr. Augusto Hernandez is enclosed in this packet. Return to the emergency department for any new or worsening symptoms. Referrals: Espinoza Skinner MD [Primary Care Provider] - 1 Week Augusto Stubbs MD [Staff Physician] - Disposition: HOME - Home Medications Comprehensive Discharge Medication List: Ambulatory Orders Amitriptyline HCl [Elavil -] 10 mg PO HS 05/13/18 Aspirin/Acetaminophen/Caffeine [Excedrin Extra Strength Caplet] 1 each PO PRN Fesoterodine Fumarate [Toviaz] 8 mg PO BID 05/13/18 Glucosamine/MSM/Chondroitin A [Glucosamine Chondroit MSM Tab] 1 each PO DAILY Metformin HCl [Metformin HCl ER] 1,000 mg PO BID 05/13/18 Pantoprazole Sodium 40 mg PO DAILY 05/13/18 Pantoprazole Sodium 40 mg PO DAILY 05/13/18 Quinapril/Hydrochlorothiazide [Accuretic 20-12.5 mg Tablet] 1 tablet PO DAILY Rosuvastatin [Crestor -] 5 mg PO HS 05/13/18 Verapamil HCl [Verapamil ER Pm] 300 mg PO DAILY 05/13/18 This patient is new to me today: No Emergency Visit: Yes ED Registration Date: 05/13/18 Care time: The patient presented to the Emergency Department on the above date and was hospitalized for further evaluation of their emergent condition. Critical Care patient: No - Discharge Referral Referred to [facility] Med P.C.: No
--- NOTE | 2018-05-16 18:11 | CONS ---
DATE OF CONSULTATION: 05/15/2018 INFECTIOUS DISEASE CONSULTATION REQUESTED BY: Hospitalist service. HISTORY OF PRESENT ILLNESS: Patient was seen and examined on May 15, 2018. This is a very pleasant 73-year-old woman. She has been intermittently living at [facility] with her elderly mother. She takes turns with her siblings looking after her. About a week ago, she developed visual changes. She was up at the [facility] and she went to a Center there. She reports she had lab work done including a sed rate that was normal, a Lyme titer that was normal. They urged her to return for followup here. She reports at that time she had some discomfort above her right orbit that resolved. She subsequently came back to [place]. She went to her PMD who called Center, got all the lab results and conveyed the results to her, and they advised her to come to the emergency room for a CAT scan and so she came to the emergency room. She had a head CT done that was negative and she was advised admission so she could have an MRI. She has no fevers or chills. No cough. The pain in her head has resolved. She is able to read completely as long as she closes one eye or the other. Each eye by itself is okay, but together she notes some blurred vision. PAST MEDICAL HISTORY: Notable for history of hypertension, hyperlipidemia, [id number] diabetes, very early stage endometrial carcinoma that was cured by REJI BERMUDEZ. SOCIAL HISTORY: She is a retired pediatric nurse. She quit smoking 20 years ago. There is no history of alcohol or drug use. REVIEW OF SYSTEMS: She has had no weight loss. She otherwise feels well. She is in no acute distress. She notes that her eyes together she is unable to focus and read, but each eye individually is fine. ALLERGIES: SHE IS ALLERGIC TO BACTRIM. MEDICATIONS: At home include, Excedrin p.r.n., Toviaz, glucosamine, hydrochlorothiazide, metformin, pantoprazole, Crestor, and verapamil. PHYSICAL EXAMINATION: General: She is awake and alert, in no acute distress. Vital Signs: Temperature is 98.5, blood pressure is 123/73, respiratory rate 20, heart rate 86. She is saturating 97% on room air. HEENT: Normocephalic. Eyes are anicteric. Neck: Supple. Lungs: Clear to auscultation. Heart: Regular rate and rhythm. Abdomen: Soft, nontender. Extremities: Without edema. She has no adenopathy. Neurologic: Her right eye did not accommodate to the same level as her left. LABORATORY DATA: Notable for a sed rate of 17, which is normal. White count 9.6, hemoglobin 13.2. Her electrolytes were all normal. CRP was 0.9. In summary, this is a 73-year-old woman admitted for brain imaging with visual changes. She is being followed by Neurology who is recommended Ophthalmology evaluation. Normal sed rate and CRP. Had negative Lyme serology as an outpatient. Repeat Lyme is pending. Would get an RPR for completeness although given her history this is unlikely. Would defer further workup to Neurology. MADDIE LOWE M.D. [id number]
[2018-05-17 16:31] LABS: E. chaff IgG Negative (Neg:<1:64)
[2018-05-18 00:07] LABS: BABESIA MICROTI ANTIBODY IGG <1:10 (Neg:<1:10); BABESIA MICROTI ANTIBODY IGM <1:10 (Neg:<1:10)
== END 2018-05-15 18:55 | disposition home or self-care (01) ==
LOC: JER 09:13 → JERBED 13:50 → J5S 15:38
PROVIDERS: ADMIT Internal Medicine; ATTEND Nurse Practitioner Acute Care
PROC: 3E013GC Introduction of Other Therapeutic Substance into Subcutaneous Tissue, Percutaneous Approach (ICD-10-PCS; principal; 2018-05-13)
DX: H53.2 Diplopia (principal); I10 Essential (primary) hypertension; E78.5 Hyperlipidemia, unspecified; E11.9 Type 2 diabetes mellitus without complications; Z85.42 Personal history of malignant neoplasm of other parts of uterus; Z79.82 Long term (current) use of aspirin; Z79.84 Long term (current) use of oral hypoglycemic drugs; Z87.891 Personal history of nicotine dependence; Z88.2 Allergy status to sulfonamides; Z88.1 Allergy status to other antibiotic agents
CPT/HCPCS: 36415; 70450-TC; 70551-TC; 80053; 82962; 85025; 85651; 86140; 86593; 86618; 86666; 86753; 96372; 99283-25; G0378; J1644

== ENCOUNTER 2022-05-19 04:27 | Day surgery (SDC) | payer OTHER, BC ==
[2022-05-13 16:22] VITALS: BMI 32.3
[2022-05-19 08:54] VITALS: RESP 18
[2022-05-19] MEDS ORDERED: LIDOCAINE HCL 1% PRESERVATIVE FREE - 30ML VIAL IJ ONE (09:44)
[2022-05-19] MEDS ORDERED: BUPIVACAINE HCL/PF 0.75% 10 ML VIAL PNB ONE (09:44)
[2022-05-19 10:18] VITALS: BP 115/67; PULSE 76; TEMP 97.1
== END 2022-05-19 10:42 | disposition home or self-care (01) ==
LOC: JASU-SURG 04:27
PROVIDERS: ATTEND Pain Medicine Pain Medicine
PROC: 3E0T33Z Introduction of Anti-inflammatory into Peripheral Nerves and Plexi, Percutaneous Approach (ICD-10-PCS; 2022-05-19)
PROC: 3E0T3BZ Introduction of Anesthetic Agent into Peripheral Nerves and Plexi, Percutaneous Approach (ICD-10-PCS; principal; 2022-05-19 10:30)
DX: M47.816 Spondylosis without myelopathy or radiculopathy, lumbar region (principal)
CPT/HCPCS: 76000-TC-FY

== ENCOUNTER 2022-07-03 05:02 | Day surgery (SDC) | payer OTHER, BC ==
[2022-07-02 09:52] VITALS: BMI 32.3
[2022-07-03] MEDS ORDERED: LIDOCAINE HCL/PF 1% SDV 5ML VIAL ONE (07:49)
[2022-07-03] MEDS ORDERED: BUPIVACAINE HCL/PF 0.75% 10 ML VIAL ONE (07:49)
[2022-07-03 07:51] VITALS: RESP 18
[2022-07-03] MEDS ORDERED: BUPIVACAINE HCL/PF 0.75% 10 ML VIAL PNB ONE (10:10)
[2022-07-03] MEDS ORDERED: LIDOCAINE HCL 1% PRESERVATIVE FREE - 30ML VIAL IJ ONE (10:10)
[2022-07-03 11:29] VITALS: BP 118/74; PULSE 78; TEMP 97.3
== END 2022-07-03 11:25 | disposition home or self-care (01) ==
LOC: JASU-SURG 05:02
PROVIDERS: ATTEND Pain Medicine Pain Medicine
PROC: BR16YZZ Fluoroscopy of Lumbar Facet Joint(s) using Other Contrast (ICD-10-PCS; 2022-07-03)
PROC: 3E0T3BZ Introduction of Anesthetic Agent into Peripheral Nerves and Plexi, Percutaneous Approach (ICD-10-PCS; principal; 2022-07-03 09:15)
DX: M47.816 Spondylosis without myelopathy or radiculopathy, lumbar region (principal)
CPT/HCPCS: 76000-TC-FY; 82962

== ENCOUNTER 2022-09-25 04:09 | Day surgery (SDC) | payer OTHER, BC ==
[2022-09-23 16:29] VITALS: BMI 31.9
[2022-09-25] MEDS ORDERED: LIDOCAINE HCL/PF 2% SDV 5ML VIAL ONE (07:33)
[2022-09-25] MEDS ORDERED: DEXAMETHASONE SOD PHOSPHATE 4 MG/1 ML VIAL ONE (07:34)
[2022-09-25 07:35] VITALS: BP 140/65; PULSE 91; RESP 18; TEMP 98.7
[2022-09-25] MEDS ORDERED: BUPIVACAINE HCL/PF 0.5% (5MG/ML) 10 ML VIAL ONE (07:35)
[2022-09-25] MEDS ORDERED: BUPIVACAINE HCL/PF 0.75% 10 ML VIAL ONE (07:35)
[2022-09-25] MEDS ORDERED: LIDOCAINE HCL/PF 1% SDV 5ML VIAL ONE (07:36)
[2022-09-25] MEDS ORDERED: DEXAMETHASONE SOD PHOSPHATE 10 MG/1 ML VIAL ONE (07:37)
== END 2022-09-25 10:20 | disposition home or self-care (01) ==
LOC: JASU-SURG 04:09
PROVIDERS: ATTEND Pain Medicine Pain Medicine
DX: Z53.8 Procedure and treatment not carried out for other reasons (principal)
CPT/HCPCS: J1100

== ENCOUNTER 2022-10-01 13:04 | Observation (INO) | payer OTHER, BC ==
[2022-10-01 13:33] VITALS: RESP 18
[2022-10-01 15:26] LABS: BASO % 0.9 % (0-2.0); EOS % 1.5 % (0-4.5); HEMATOCRIT 36.8 % (32.4-45.2); LYMPH % 34.1 % (8-40); MCH 29.5 pg (25.7-33.7); MCHC 32.5 g/dl (32.0-36.0); MEAN PLT VOLUME 8.4 fl (7.5-11.1); MONO % 3.9 % (3.8-10.2); NEUT % 59.6 % (42.8-82.8); PLATELET COUNT 312 10^3/uL (134-434); RBC 4.05 M/mm3 (3.60-5.2); RDW 14.1 % (11.6-15.6); WHITE BLOOD COUNT 7.1 K/mm3 (4.0-10.0)
[2022-10-01 15:47] LABS: ALBUMIN 3.4 g/dl (3.4-5.0); CALCIUM 9.3 mg/dL (8.5-10.1)
[2022-10-01 15:48] LABS: BLOOD UREA NITROGEN 19.2 mg/dL (7-18); MAGNESIUM 1.6 mg/dL (1.8-2.4)
[2022-10-01 15:51] LABS: PHOSPHOROUS 3.7 mg/dL (2.5-4.9)
[2022-10-01 15:52] LABS: BILIRUBIN,TOTAL 0.3 mg/dL (0.2-1); TOT PROT 6.7 g/dl (6.4-8.2)
[2022-10-01 16:00] LABS: CREATININE 0.6 mg/dL (0.55-1.3)
[2022-10-01] MEDS ORDERED: SODIUM CHLORIDE 1,000 ML IV SCH (17:30)
[2022-10-01] MEDS ORDERED: MAGNESIUM 2GM/50ML STERILE WATER IVPB IVPB ONE (17:33)
[2022-10-01] MEDS ORDERED: MAGNESIUM SULFATE IN WATER 2 GM/50 ML IVPB IVPB ONE (18:50)
[2022-10-01 23:02] LABS: EPI CELLS 13 /uL (0-25.1); HYALINE CASTS 0 /uL (0-3.1); URINE APPEARANCE CLOUDY; URINE BACTERIA >9,000 /uL (0-1359); URINE BILIRUBIN NEGATIVE (NEGATIVE); URINE COLOR YELLOW; URINE GLUCOSE (UA) NEGATIVE (NEGATIVE); URINE KETONE NEGATIVE (NEGATIVE); URINE LEUK ESTERASE 1+ (NEGATIVE); URINE NITRITE POSITIVE (NEGATIVE); URINE PROTEIN NEGATIVE (NEGATIVE); URINE RBC 12 /uL (0-23.9); URINE WBC 110 /uL (0-25.8)
[2022-10-01 23:21] LABS: YEAST NEGATIVE (NEGATIVE)
[2022-10-02 07:14] LABS: BASO % 0.7 % (0-2.0); EOS % 1.8 % (0-4.5); HEMOGLOBIN 11.8 GM/dL (10.7-15.3); LYMPH % 40.1 % (8-40); MCH 30.2 pg (25.7-33.7); MCHC 33.7 g/dl (32.0-36.0); MEAN CELL VOLUME 89.7 fl (80-96); MEAN PLT VOLUME 8.1 fl (7.5-11.1); MONO % 4.7 % (3.8-10.2); NEUT % 52.7 % (42.8-82.8); PLATELET COUNT 303 10^3/uL (134-434); RDW 14.1 % (11.6-15.6); WHITE BLOOD COUNT 7.7 K/mm3 (4.0-10.0)
[2022-10-02 07:50] LABS: CALCIUM 9.4 mg/dL (8.5-10.1)
[2022-10-02 07:51] LABS: ALBUMIN 3.5 g/dl (3.4-5.0); BLOOD UREA NITROGEN 16.4 mg/dL (7-18); MAGNESIUM 2.2 mg/dL (1.8-2.4)
[2022-10-02 08:16] LABS: BILIRUBIN,TOTAL 0.4 mg/dL (0.2-1); CREATININE 0.7 mg/dL (0.55-1.3); PHOSPHOROUS 3.7 mg/dL (2.5-4.9); TOT PROT 6.7 g/dl (6.4-8.2)
[2022-10-02 11:09] VITALS: BMI 32.0
[2022-10-02 15:33] VITALS: TEMP 98.3
[2022-10-02 17:18] VITALS: BP 124/64; PULSE 91
[2022-10-02] MEDS ORDERED: ROSUVASTATIN CA 5 MG TABLET PO SCH (22:00)
[2022-10-02] MEDS ORDERED: AMITRIPTYLINE HCL 10 MG TABLET PO SCH (22:00)
[2022-10-02] MEDS ORDERED: GABAPENTIN 100 MG CAPSULE PO SCH (22:00)
[2022-10-02] MEDS ORDERED: DESMOPRESSIN ACETATE 0.2 MG TABLET PO SCH (22:00)
[2022-10-02] MEDS ORDERED: metoPROLOL SUCCINATE 25 MG TAB.SR.24H (FP) PO SCH (22:00)
[2022-10-03] MEDS ORDERED: QUINAPRIL HCL 20 MG TABLET PO SCH (10:00)
[2022-10-03] MEDS ORDERED: PATIENT'S OWN MEDICATION (NON-FORMULARY) (Quinapril/Hydrochlorothiazide [Accuretic 20-12.5 PO SCH (10:00)
[2022-10-03] MEDS ORDERED: PANTOPRAZOLE 40 MG TABLET PO SCH (10:00)
[2022-10-03] MEDS ORDERED: HYDROCHLOROTHIAZIDE 12.5 MG CAPSULE (FP) PO SCH (10:00)
== END 2022-10-02 20:45 | disposition home or self-care (01) ==
LOC: JER 13:04 → JERBED 16:57 → J7W 10-02 06:47
PROVIDERS: ADMIT Internal Medicine; ATTEND Internal Medicine
PROC: 3E033GC Introduction of Other Therapeutic Substance into Peripheral Vein, Percutaneous Approach (ICD-10-PCS; principal; 2022-10-01)
PROC: 3E0337Z Introduction of Electrolytic and Water Balance Substance into Peripheral Vein, Percutaneous Approach (ICD-10-PCS; 2022-10-01)
DX: R42 Dizziness and giddiness (principal); R26.81 Unsteadiness on feet; I10 Essential (primary) hypertension; E78.5 Hyperlipidemia, unspecified; G89.29 Other chronic pain; M54.9 Dorsalgia, unspecified; M48.00 Spinal stenosis, site unspecified; Z88.2 Allergy status to sulfonamides; Z88.8 Allergy status to other drugs, medicaments and biological substances; Z87.891 Personal history of nicotine dependence; E83.42 Hypomagnesemia; L53.8 Other specified erythematous conditions; Z29.8 Encounter for other specified prophylactic measures; Z85.89 Personal history of malignant neoplasm of other organs and systems
CPT/HCPCS: 0241U-QW; 36415; 70450-TC; 71045-TC-FY; 80053; 81003; 83735; 84100; 84443; 84484; 85025; 87086; 87186; 93005; 93010; 96361; 96374; 99285-25; G0378

== ENCOUNTER 2022-10-09 04:19 | Day surgery (SDC) | payer OTHER, BC ==
[2022-10-07 08:57] VITALS: BMI 31.9
[2022-10-09] MEDS ORDERED: LIDOCAINE HCL/PF 1% SDV 5ML VIAL ONE (07:29)
[2022-10-09] MEDS ORDERED: BUPIVACAINE HCL/PF 0.75% 10 ML VIAL ONE (07:29)
[2022-10-09] MEDS ORDERED: LIDOCAINE HCL/PF 2% SDV 5ML VIAL ONE (07:29)
[2022-10-09] MEDS ORDERED: DEXAMETHASONE SOD PHOSPHATE 10 MG/1 ML VIAL ONE (07:29)
[2022-10-09 09:19] VITALS: RESP 18
[2022-10-09] MEDS ORDERED: BUPIVACAINE HCL/PF 0.75% 10 ML VIAL CAUD ONE (11:18)
[2022-10-09] MEDS ORDERED: LIDOCAINE HCL 1%, 10 MG/ML (50 mL VIAL) INF ONE (11:18)
[2022-10-09] MEDS ORDERED: LIDOCAINE HCL/PF 2% SDV 5ML VIAL INF ONE (11:19)
[2022-10-09] MEDS ORDERED: DEXAMETHASONE SOD PHOSPHATE 10 MG/1 ML VIAL IVPUSH ONE (11:19)
[2022-10-09 12:17] VITALS: TEMP 98.7
[2022-10-09 12:29] VITALS: BP 120/64; PULSE 74
== END 2022-10-09 12:10 | disposition home or self-care (01) ==
LOC: JASU-SURG 04:19
PROVIDERS: ATTEND Pain Medicine Pain Medicine
PROC: 3E0T3TZ Introduction of Destructive Agent into Peripheral Nerves and Plexi, Percutaneous Approach (ICD-10-PCS; principal; 2022-10-09 10:30)
DX: M47.816 Spondylosis without myelopathy or radiculopathy, lumbar region (principal)
CPT/HCPCS: 76000-TC-FY; J1100

== ENCOUNTER 2022-10-30 04:00 | Day surgery (SDC) | payer OTHER, BC ==
[2022-10-27 12:35] VITALS: BMI 31.9
[2022-10-30 09:18] VITALS: RESP 18
[2022-10-30] MEDS ORDERED: LIDOCAINE HCL/PF 2% SDV 5ML VIAL INF ONE (11:39)
[2022-10-30] MEDS ORDERED: LIDOCAINE HCL 1% PRESERVATIVE FREE - 30ML VIAL IJ ONE (11:39)
[2022-10-30] MEDS ORDERED: BUPIVACAINE HCL/PF 0.75% 10 ML VIAL PNB ONE (11:39)
[2022-10-30] MEDS ORDERED: DEXAMETHASONE SOD PHOSPHATE 10 MG/1 ML VIAL IVPUSH ONE (11:39)
[2022-10-30 14:17] VITALS: BP 117/62; PULSE 87; TEMP 97.8
== END 2022-10-30 12:45 | disposition home or self-care (01) ==
LOC: JASU-SURG 04:00
PROVIDERS: ATTEND Pain Medicine Pain Medicine
PROC: 005Y3ZZ Destruction of Lumbar Spinal Cord, Percutaneous Approach (ICD-10-PCS; principal; 2022-10-30 10:45)
DX: M47.816 Spondylosis without myelopathy or radiculopathy, lumbar region (principal)
CPT/HCPCS: 76000-TC-FY; J1100

== ENCOUNTER 2022-12-15 04:14 | Day surgery (SDC) | payer OTHER, BC ==
[2022-12-11 14:09] VITALS: BMI 31.8
[2022-12-15] MEDS ORDERED: TRIAMCINOLONE ACET 40MG/1ML VIAL ONE (09:30)
[2022-12-15 10:29] VITALS: RESP 18; TEMP 97.8
[2022-12-15 10:32] VITALS: BP 121/77; PULSE 77
== END 2022-12-15 10:05 | disposition home or self-care (01) ==
LOC: JASU-SURG 04:14
PROVIDERS: ATTEND Pain Medicine Pain Medicine
PROC: 3E0U3BZ Introduction of Anesthetic Agent into Joints, Percutaneous Approach (ICD-10-PCS; 2022-12-15)
PROC: 3E0U33Z Introduction of Anti-inflammatory into Joints, Percutaneous Approach (ICD-10-PCS; principal; 2022-12-15 09:00)
DX: M53.3 Sacrococcygeal disorders, not elsewhere classified (principal)
CPT/HCPCS: 76000-TC-FY

== ENCOUNTER 2025-04-19 12:20 | Inpatient (IN) | payer OTHER, BC ==
[2025-04-19] MEDS ORDERED: ONDANSETRON 4 MG/2 ML VIAL ONE ×2 (13:51→18:41)
[2025-04-19] MEDS: SODIUM CHLORIDE 500 ML IV STA (14:08)
[2025-04-19] MEDS: ONDANSETRON 4 MG/2 ML VIAL IVPUSH ONE (14:08)
[2025-04-19 14:20] LABS: ABSOLUTE IMMATURE GRANULOCYTES 0.14 x10^3/uL (0.0-0.031); BASOPHILS # 0.05 x10^3/uL (0.01-0.08); EOSINOPHIL % 0.4 % (0.7-5.8); EOSINOPHILS # 0.07 x10^3/uL (0.04-0.36); MCHC 33.2 g/dl (32.2-35.5); MEAN CELL VOLUME 89.8 fl (79.4-94.8); MEAN PLT VOLUME 9.6 fl (9.4-12.3); MONOCYTE # 0.43 x10^3/uL (0.24-0.86); MONOCYTE % 2.2 % (4.7-12.5); RDW 13.8 % (12.5-17.0)
[2025-04-19] MEDS ORDERED: HYDROmorphone HCL CARPU-JECT 2 MG/1 ML DISP.SYRIN ONE (14:30)
[2025-04-19 14:51] LABS: CO2 23.0 mmol/L (21-32); GLUCOSE,RANDOM 202.0 mg/dL (74-106)
[2025-04-19 14:54] LABS: CREATININE 1.1 mg/dL (0.55-1.3); SGPT/ALT 20.0 U/L (13-61)
[2025-04-19 14:55] LABS: TOT PROT 7.1 g/dl (6.4-8.2)
[2025-04-19 14:56] LABS: ALK PHOS 88.0 U/L (45-117)
[2025-04-19 15:07] LABS: SGOT/AST 14.0 U/L (15-37)
[2025-04-19 15:22] LABS: LACTIC ACID 2.9 mmol/L (0.4-2.0)
[2025-04-19] MEDS: METOCLOPRAMIDE HCL INJECTION 10 MG/2 ML VIAL IVPB ONE (15:23)
[2025-04-19] MEDS: LACTATED RINGERS SOLUTION 1000 ML INFUS.BAG IV ONE ×2 (15:23)
[2025-04-19] MEDS: METHOCARBAMOL 500 MG TABLET PO ONE (15:23)
[2025-04-19] MEDS: ACETAMINOPHEN 1000 MG/100 ML BAG IVPB ONE ×3 (15:23→19:00)
[2025-04-19] MEDS: KETOROLAC TROMETHAMINE 15 MG/ML VIAL IM ONE (15:23)
[2025-04-19] MEDS: ONDANSETRON *ODT* 4 MG TABLET SL ONE (15:23)
[2025-04-19] MEDS ORDERED: MAGNESIUM SULFATE IN WATER 2 GM/50 ML IVPB IVPB ONE (17:58)
[2025-04-19] MEDS ORDERED: PIPERACILLIN/TAZOB 4.5 GM 4.5 GM/100 ML BAG IVPB ONE (17:58)
[2025-04-19 18:03] LABS: INR 1.23 (0.83-1.09); PROTHROMBIN TIME (PATIENT) 13.5 SEC (9.7-13.0)
[2025-04-19 18:06] LABS: ACTIVATED PTT 27.6 SECONDS (25.2-36.5)
[2025-04-19] MEDS: PIPERACILLIN/TAZOB 4.5 GM 4.5 GM in DEXTROSE 5%-WATER 100 ML IVPB ONE (18:15)
[2025-04-19] MEDS: MAGNESIUM SULFATE IN WATER 2 GM/50 ML IVPB IVPB ONE (18:16)
[2025-04-19] MEDS ORDERED: ACETAMINOPHEN INJECTION 100 ML ONE (18:18)
[2025-04-19 18:21] LABS: LACTIC ACID 2.5 mmol/L (0.4-2.0)
[2025-04-19] MEDS ORDERED: VANCOMYCIN 1 GM PREMIX (F) 1 GM/200 ML BAG ONE (18:42)
[2025-04-19] MEDS: VANCOMYCIN 1,000 MG in DEXTROSE 5%-WATER - 250 ML IVPB ONE (18:52)
[2025-04-19] MEDS: ONDANSETRON 4 MG/2 ML VIAL IVPB ONE (19:00)
[2025-04-19 22:52] LABS: LACTIC ACID 2.2 mmol/L (0.4-2.0)
[2025-04-19] MEDS ORDERED: INSULIN ASPART SLIDING SCALE (NOVOLOG) 1 VIAL SQ SCH (23:00)
[2025-04-20] MEDS ORDERED: PIPERACILLIN/TAZOB 3.375 GM 3.375 GM in DEXTROSE 5%-WATER - 50 ML IVPB SCH (04:15)
[2025-04-20] MEDS: LACTATED RINGERS SOLUTION 1,000 ML/1,000 ML INFUS.BAG IV SCH ×2 (04:26→11:39)
[2025-04-20] MEDS: INSULIN ASPART SLIDING SCALE (NOVOLOG) 1 VIAL SQ SCH ×2 (04:48→06:13)
[2025-04-20 05:19] LABS: URINE APPEARANCE CLOUDY; URINE BILIRUBIN NEGATIVE (NEGATIVE); URINE COLOR YELLOW; URINE GLUCOSE (UA) NEGATIVE (NEGATIVE); URINE KETONE TRACE (NEGATIVE)
[2025-04-20 05:20] LABS: URINE LEUK ESTERASE MODERATE (NEGATIVE); URINE NITRITE POSITIVE (NEGATIVE); URINE PROTEIN 100 (NEGATIVE); URINE UROBILINOGEN 1.0 mg/dL (0.2-1.0)
[2025-04-20 05:21] LABS: EPI CELLS 16.8 /uL (0-25.1); HYALINE CASTS 0.25 /uL (0-3.1); URINE BACTERIA 869 /uL (0-1359); URINE RBC 40.5 /uL (0-23.9); URINE WBC 956.3 /uL (0-25.8)
[2025-04-20] MEDS: ONDANSETRON 4 MG/2 ML VIAL IVPUSH PRN (06:11)
[2025-04-20] MEDS: PIPERACILLIN/TAZOB 3.375 GM 3.375 GM in DEXTROSE 5%-WATER - 50 ML IVPB SCH ×2 (09:41→17:31)
[2025-04-20] MEDS ORDERED: ENOXAPARIN NA (PORCINE) 40 MG/0.4 ML DISP.SYRIN SQ SCH (10:00)
[2025-04-20 10:23] LABS: MCHC 33.5 g/dl (32.2-35.5); MEAN CELL VOLUME 89.5 fl (79.4-94.8); MEAN PLT VOLUME 10.2 fl (9.4-12.3); RDW 13.9 % (12.5-17.0)
[2025-04-20 11:29] LABS: CO2 22.0 mmol/L (21-32); GLUCOSE,RANDOM 172.0 mg/dL (74-106)
[2025-04-20 11:32] LABS: CREATININE 1.1 mg/dL (0.55-1.3); SGPT/ALT 19.0 U/L (13-61)
[2025-04-20 11:33] LABS: SGOT/AST 18.0 U/L (15-37)
[2025-04-20 11:34] LABS: ALK PHOS 78.0 U/L (45-117); TOT PROT 6.0 g/dl (6.4-8.2)
[2025-04-20] MEDS ORDERED: AMITRIPTYLINE HCL 10 MG TABLET PO SCH (22:00)
[2025-04-20] MEDS: ROSUVASTATIN CA 5 MG TABLET PO SCH (22:22)
[2025-04-20] MEDS: ACETAMINOPHEN 1000 MG/100 ML BAG IVPB PRN (22:29)
[2025-04-20] MEDS: TOLTERODINE TARTRATE LA 4 MG CAP.SR.24H (FP) PO SCH (22:46)
[2025-04-21 08:27] LABS: MCHC 32.2 g/dl (32.2-35.5); MEAN CELL VOLUME 91.8 fl (79.4-94.8); MEAN PLT VOLUME 10.4 fl (9.4-12.3); RDW 14.0 % (12.5-17.0)
[2025-04-21 09:27] LABS: CO2 23.0 mmol/L (21-32); GLUCOSE,RANDOM 156.0 mg/dL (74-106)
[2025-04-21 09:28] LABS: CREATININE 0.9 mg/dL (0.55-1.3)
[2025-04-21 09:31] LABS: ALK PHOS 106.0 U/L (45-117); SGOT/AST 18.0 U/L (15-37); SGPT/ALT 26.0 U/L (13-61); TOT PROT 6.4 g/dl (6.4-8.2)
[2025-04-21] MEDS: ENOXAPARIN NA (PORCINE) 40 MG/0.4 ML DISP.SYRIN SQ SCH (11:45)
[2025-04-22 09:17] LABS: ABSOLUTE IMMATURE GRANULOCYTES 0.05 x10^3/uL (0.0-0.031); BASOPHILS # 0.03 x10^3/uL (0.01-0.08); EOSINOPHIL % 1.7 % (0.7-5.8); EOSINOPHILS # 0.17 x10^3/uL (0.04-0.36); MCHC 31.6 g/dl (32.2-35.5); MEAN CELL VOLUME 91.6 fl (79.4-94.8); MEAN PLT VOLUME 10.2 fl (9.4-12.3); MONOCYTE # 0.49 x10^3/uL (0.24-0.86); MONOCYTE % 5.0 % (4.7-12.5); RDW 14.0 % (12.5-17.0)
[2025-04-22 09:42] LABS: CO2 26.0 mmol/L (21-32); GLUCOSE,RANDOM 167.0 mg/dL (74-106)
[2025-04-22 09:45] LABS: SGOT/AST 15.0 U/L (15-37); SGPT/ALT 22.0 U/L (13-61)
[2025-04-22 09:46] LABS: CREATININE 0.9 mg/dL (0.55-1.3); TOT PROT 6.0 g/dl (6.4-8.2)
[2025-04-22 09:47] LABS: ALK PHOS 124.0 U/L (45-117)
[2025-04-22 10:03] LABS: ERYTHROCYTE SEDIMENTATION RATE 91 mm/hr (0-30)
[2025-04-22] MEDS: DIVALPROEX NA *ER* EXTEND REL 250 MG TABLET.SA PO SCH (17:24)
[2025-04-22] MEDS: IBUPROFEN 400 MG TABLET (FP) PO ONE (17:24)
[2025-04-22] MEDS: DIVALPROEX NA *ER* EXTEND REL 250 MG TABLET.SA PO ONE (17:33)
[2025-04-23 08:30] LABS: ABSOLUTE IMMATURE GRANULOCYTES 0.11 x10^3/uL (0.0-0.031); BASOPHILS # 0.04 x10^3/uL (0.01-0.08); EOSINOPHIL % 2.2 % (0.7-5.8); EOSINOPHILS # 0.16 x10^3/uL (0.04-0.36); MCHC 32.7 g/dl (32.2-35.5); MEAN CELL VOLUME 91.0 fl (79.4-94.8); MEAN PLT VOLUME 9.8 fl (9.4-12.3); MONOCYTE # 0.68 x10^3/uL (0.24-0.86); MONOCYTE % 9.5 % (4.7-12.5); RDW 14.0 % (12.5-17.0)
[2025-04-23 09:33] LABS: CO2 26.0 mmol/L (21-32); GLUCOSE,RANDOM 186.0 mg/dL (74-106)
[2025-04-23 09:34] LABS: CREATININE 0.6 mg/dL (0.55-1.3)
[2025-04-23] MEDS: CEFTRIAXONE 2 GM-D5W BAG 2 GM/50 ML BAG IVPB SCH (11:54)
[2025-04-23] MEDS: DIVALPROEX NA *ER* EXTEND REL 500 MG TABLET.SA (FP) PO SCH (21:54)
[2025-04-24] MEDS: ACETAMINOPHEN 325 MG TABLET (FP) PO PRN (09:31)
[2025-04-24] MEDS: ASPIRIN 81 MG CHEWABLE TABLETS PO SCH (09:31)
[2025-04-24] MEDS: PANTOPRAZOLE 40 MG TABLET PO SCH (09:31)
[2025-04-24] MEDS: LOSARTAN POTASSIUM 25 MG TABLET PO SCH (09:31)
[2025-04-24 09:34] LABS: ABSOLUTE IMMATURE GRANULOCYTES 0.08 x10^3/uL (0.0-0.031); BASOPHILS # 0.05 x10^3/uL (0.01-0.08); EOSINOPHIL % 1.9 % (0.7-5.8); EOSINOPHILS # 0.17 x10^3/uL (0.04-0.36); MCHC 31.8 g/dl (32.2-35.5); MEAN CELL VOLUME 91.5 fl (79.4-94.8); MEAN PLT VOLUME 9.6 fl (9.4-12.3); MONOCYTE # 0.75 x10^3/uL (0.24-0.86); MONOCYTE % 8.3 % (4.7-12.5); RDW 14.0 % (12.5-17.0)
[2025-04-24 10:45] LABS: CO2 26.0 mmol/L (21-32)
[2025-04-24 10:46] LABS: GLUCOSE,RANDOM 177.0 mg/dL (74-106)
[2025-04-24 10:49] LABS: CREATININE 0.6 mg/dL (0.55-1.3)
[2025-04-24] MEDS ORDERED: POLYETHYLENE GLYCOL (HEALTHYLAX) 3350 17 GM PACKET PO PRN (16:34)
[2025-04-24] MEDS: POLYETHYLENE GLYCOL (HEALTHYLAX) 3350 17 GM PACKET PO SCH (17:20)
[2025-04-24 17:30] LABS: EPI CELLS >36 /uL (0-25.1); HYALINE CASTS 1 /uL (0-3.1); URINE APPEARANCE CLOUDY; URINE BACTERIA 4 /uL (0-1359); URINE BILIRUBIN NEGATIVE (NEGATIVE); URINE COLOR YELLOW; URINE GLUCOSE (UA) NEGATIVE (NEGATIVE); URINE KETONE NEGATIVE (NEGATIVE); URINE LEUK ESTERASE TRACE (NEGATIVE); URINE NITRITE NEGATIVE (NEGATIVE); URINE PROTEIN 1+ (NEGATIVE); URINE RBC 16 /uL (0-23.9); URINE UROBILINOGEN 1.0 mg/dL (0.2-1.0)
[2025-04-24] MEDS: MELATONIN 5 MG TABLETS PO PRN (22:58)
[2025-04-25] VITALS: BMI 31.9
[2025-04-25 06:21] VITALS: RESP 20
[2025-04-25 08:42] LABS: MCHC 32.3 g/dl (32.2-35.5); MEAN CELL VOLUME 91.1 fl (79.4-94.8); MEAN PLT VOLUME 9.4 fl (9.4-12.3); RDW 13.8 % (12.5-17.0)
[2025-04-25 09:16] LABS: CO2 26.0 mmol/L (21-32); GLUCOSE,RANDOM 176.0 mg/dL (74-106)
[2025-04-25 09:18] LABS: CREATININE 0.6 mg/dL (0.55-1.3)
[2025-04-25 14:39] VITALS: BP 129/68; PULSE 88; TEMP 98.1
== END 2025-04-25 17:00 | disposition home or self-care (01) | DRG 872 ==
LOC: JER 12:20 → JERBED 15:57 → J6S 20:35
PROVIDERS: ADMIT Internal Medicine; ATTEND Internal Medicine
DX: A41.9 Sepsis, unspecified organism (principal); E87.20 Acidosis, unspecified; I10 Essential (primary) hypertension; E78.5 Hyperlipidemia, unspecified; E11.42 Type 2 diabetes mellitus with diabetic polyneuropathy; R51.9 Headache, unspecified; E83.42 Hypomagnesemia; H49.01 Third [oculomotor] nerve palsy, right eye; R32 Unspecified urinary incontinence; R91.1 Solitary pulmonary nodule; G58.9 Mononeuropathy, unspecified
CPT/HCPCS: 36415; 70543-TC; 70544-TC; 71045-TC-FY; 71250-TC; 74177-TC; 80048; 80053; 81003; 82607; 82962; 83036; 83605; 83690; 83735; 84100; 84439; 84443; 84484; 85025; 85027; 85610; 85651; 85730; 86140; 86780; 86850; 86900; 86901; 87040; 87637-QW; 93005; 93010; 93306-TC; 97116-GP; 97161-GP; 99285-25; Q9967